=== PATIENT | male | born 1960 | race Two or more races ===

== ENCOUNTER 2022-02-11 17:44 | Inpatient (IN) | payer BC ==
[2022-02-11] VITALS (13 sets, daily range): BP systolic 101–145; BP diastolic 67–90
[~2022-02-11] VITALS: Ht 172.7 cm; Wt 76.6 kg
--- NOTE | 2022-02-11 19:30 | NUR ---
PATIENT ARRIVES TO ROOM FOR AMBLATION
--- NOTE | 2022-02-11 20:00 | NUR ---
Reassessment of patient completed. No distress noted.
[2022-02-11 20:01] LABS: HEMATOCRIT 25.1 % (39.0-50.0); HEMOGLOBIN 8.6 g/dl (14.0-18.0); IMMATURE GRANULOCYTES 0.2 % (0.0-5.0); MEAN CORPUSCULAR HGB 30.8 pG CALC (26.0-32.0); MEAN CORPUSCULAR HGB CONC 34.3 g/dL CAL (32.0-36.0); NEUT# 4.35 thou/uL (1.82-7.42); RED BLOOD COUNT 2.79 mill/uL (4.70-6.10); RED CELL DISTRI WIDTH 14.8 % (11.5-15.5)
[2022-02-11 20:18] LABS: ALBUMIN 4.4 g/dL (3.2-5.0); BILIRUBIN, TOTAL 0.4 mg/dL (0.0-1.4); TOTAL PROTEIN 7.1 g/dL (6.3-8.2)
[2022-02-11 20:25] LABS: CREATININE 11.2 mg/dL (0.7-1.3)
--- NOTE | 2022-02-11 21:00 | NUR ---
Reassessment of patient completed. No distress noted.
--- NOTE | 2022-02-11 22:00 | NUR ---
Reassessment of patient completed. No distress noted.
--- NOTE | 2022-02-11 22:10 | NUR ---
61 yr old marshallese male admitted to icu per stretcher from er. transferred self to bed. bed weight obtained. wheel lacer and truer shows sinus rhythm. #22 rac ns infusing @ 150cchr. po fluids given per request. denies n/v & diarrhea. history obtained per er record & pt. oriented to room. fall precautions initiated.
--- NOTE | 2022-02-11 22:12 | NUR ---
REPORT GIVEN TO KELLY CARTER AND KELLY HERNANDEZ TRASPORTED TO ICU
[2022-02-11 22:33] LABS: URINE BILIRUBIN - DIPSTICK NEGATIVE (NEGATIVE); URINE BLOOD DIPSTICK NEGATIVE (NEGATIVE); URINE COLOR YELLOW; URINE GLUCOSE - DIPSTICK NEGATIVE (NEGATIVE); URINE KETONE NEGATIVE (NEGATIVE); URINE LEUK ESTERASE NEGATIVE (NEGATIVE); URINE PROTEIN - DIPSTICK TRACE mg/dL (NEG-TRACE); URINE SPECIFIC GRAVITY >=1.030; URINE UROBILINOGEN - DIPSTICK 0.2 E.U./dL (0.2)
[2022-02-11 22:36] LABS: URINE NITRITE - DIPSTICK NEGATIVE (Negative)
[2022-02-11 22:37] LABS: CREATININE 10.4 mg/dL (0.7-1.3); POTASSIUM 5.8 mmol/l (3.5-5.1)
[2022-02-12] VITALS (25 sets, daily range): BP systolic 88–138; BP diastolic 62–91
--- NOTE | 2022-02-12 00:01 | NUR ---
eyes closed. no distress. engine monitor shows sinus rhythm.
--- NOTE | 2022-02-12 02:00 | NUR ---
reesting quietly. resps even & unlabored. no apparent distress.
--- NOTE | 2022-02-12 04:10 | NUR ---
lab here. blood drawn.
[2022-02-12 05:37] LABS: HEMATOCRIT 24.8 % (39.0-50.0); HEMOGLOBIN 8.3 g/dl (14.0-18.0); MEAN CELL VOLUME 92.5 fL CALC (80.0-100.0); MEAN CORPUSCULAR HGB CONC 33.5 g/dL CAL (32.0-36.0); RED BLOOD COUNT 2.68 mill/uL (4.70-6.10); RED CELL DISTRI WIDTH 15.2 % (11.5-15.5)
--- NOTE | 2022-02-12 06:04 | NUR ---
eyes closed. no distress. cardiac moitor shows sinus tach.
[2022-02-12 06:11] LABS: ALBUMIN 3.6 g/dL (3.2-5.0); MAGNESIUM 1.6 mg/dL (1.6-2.3)
[2022-02-12 06:27] LABS: CREATININE 10.8 mg/dL (0.7-1.3); POTASSIUM 6.1 mmol/l (3.5-5.1)
--- NOTE | 2022-02-12 08:30 | NUR ---
CLINICAL SCIENCE LIAISON LINE USED WITH DR ZAMORA TO EXPLAIN POC TO PT, INCLUDING POSSIBLE NEED FOR DIALYSIS AND TO GAIN CONSENT FOR TEMP DIALYSIS CATHETER IF NEEDED, PT VU, QUESTIONS ANSWERED, WILL ATTEMPT TO WAIT FOR PT TO URINATE AND RECHECK LABS AROUND NOON
[2022-02-12] MEDS ORDERED: METFORMIN500 M2 PO (09:48)
[2022-02-12] MEDS ORDERED: GLYBURIDE5 M1 PO (09:48)
[2022-02-12] MEDS ORDERED: ZOFRAN4 MG/TAB PO (09:49)
[2022-02-12 13:23] LABS: ALBUMIN 3.3 g/dL (3.2-5.0)
[2022-02-12 13:28] LABS: CREATININE 10.6 mg/dL (0.7-1.3); POTASSIUM 6.2 mmol/l (3.5-5.1)
--- NOTE | 2022-02-12 14:00 | NUR ---
PT HAS URINATED 300 ML AND BEEN UP TO [facility] FOR BM
--- NOTE | 2022-02-12 18:19 | NUR ---
pt now with temp dialysis cath to R neck, he has also been for US of kidneys, IVF continues
--- NOTE | 2022-02-12 19:30 | NUR ---
awakns easily. denies c/o. night monitor shows sinus tach. #22 rac d51/2ns w bicarb infusing 75cchr. po fluids taken well. has not voided. fall precautions cont.
--- NOTE | 2022-02-12 22:05 | NUR ---
dr izquierdo called this rfp writer. updated on pts condition. rt notified of need for o2. [facility] notified of need for meds to be verified.
--- NOTE | 2022-02-12 22:25 | NUR ---
lab here. blood drawn.
[2022-02-12 23:00] LABS: CREATININE 10.8 mg/dL (0.7-1.3); POTASSIUM 5.7 mmol/l (3.5-5.1)
[2022-02-13] VITALS (17 sets, daily range): BP systolic 108–125; BP diastolic 61–82
--- NOTE | 2022-02-13 00:01 | NUR ---
eyes closed. no distres. monitor tech shows sinus tach.
--- NOTE | 2022-02-13 02:00 | NUR ---
resting quietly. resps even & unlabored. no apparent distress.
--- NOTE | 2022-02-13 04:00 | NUR ---
resting quietly. resps even & unlabored.
--- NOTE | 2022-02-13 04:50 | NUR ---
lab here. blood drawn.
[2022-02-13 05:50] LABS: POTASSIUM 4.8 mmol/l (3.5-5.1)
[2022-02-13 05:57] LABS: CREATININE 10.7 mg/dL (0.7-1.3)
--- NOTE | 2022-02-13 13:02 | NUR ---
PT TO DIALYSIS, TRANSFERS TO WITH STEADY GAIT, DENIES PAIN AT THIS TIME
--- NOTE | 2022-02-13 13:38 | NUR ---
13:06 DIALYSIS TREATMENT INITIATED. DIALYSIS CATHATER TO LEFT IJ INTACT, SECURED WITH NEW DRESSING, VISABLE, AND CONNECTED TO BLOOD LINES. CATHATER VERY POSITIONAL. ALARMS FOR KINKS IN ARTERIAL LINES WHEN NO KINKS NOTED. PATIENT BLOOD PRESSURE WNL AT 129/77 HEART RATE 93 REGULAR, NO EDEMA NOTED, PULSES PRESENT, RESPIRATIONS EASY NON LABORED AT 21, SATS AT 96% RA. SKIN WARM DRY INTACT. PATIENT ALERT AND ORIENTE X 4. DENIES C/O OF PAIN OR DISCOMFORT AT PRESENT.CONSENTS SIGNED BY PATIENT. EDUCATED ON ESRD WITH PATIENT INDICATING UNDERSTANDING START WEIGHT 81.8 GK
--- NOTE | 2022-02-13 15:09 | NUR ---
PATIENT RESTING EYES CLOSED, DIALYSIS TREATMENT CONTINUES, PATIENT TOLERATING TREATMENT WITHOUT INCIDENT. NO EVIDENCE OF PAIN OR DISCOMFORT NOTED, NO SEIZURE ACTIVITY, DIALIZER CLEAN, NO EVIDENCE OF CLOTTING, CATHATER TO RIGHT IJ WORKING WELL AT PRESENT, NO ALARMS SOUNDING, REMOVING 1800 MLS FLUID. INSTRUCTED PATIENT ON USE OF EPOGEN, PATIENT VERBALIZED UNDERSTANDING.
--- NOTE | 2022-02-13 16:31 | NUR ---
PT NOT BACK FROM DIALYSIS, LINENS CHANGED
--- NOTE | 2022-02-13 16:49 | NUR ---
TREATMENT ENDED ABOUT 45 MINUTES EARLY DUE TO MACHINE MALFUNCTION, NO SEIZURE ACTIVITY NOTED BY PATIENT, BLOOD RETURNED, PATIENT TOLERATED DIALYSIS TREATMENT WITHOUT INCIDENT.V/S REMAINED WNL.
--- NOTE | 2022-02-13 17:12 | NUR ---
PT BACK FROM DIALYSIS, KALIE WELL, STOOD AT BEDSIDE TO USE URINAL, STEADY, DENIES PAIN/NEEDS
--- NOTE | 2022-02-13 17:24 | NUR ---
patient transported via w/c back to ICU ambulated to bed without difficulty. no c/o of dizziness, fatigue, seizures, loow b/p, no issues noted with dialysis treatment. patient taken off treatment about 45 minutes early due to machine malfunction. no effects to the patient
--- NOTE | 2022-02-13 20:00 | NUR ---
PT ALERT AND ORIENTED. NOT FLUIENT IN [place], BUT ANSWERS YES/NO QUESTIONS APPROPRIATELY WHEN ASKED. PT DENIENS PAIN AT THIS TIME. VITAL SIGNS ARE WITHIN NORMAL LIMITS. PTS CALL LIGHT AND PERSONAL BELONGINGS ARE WITHIN REACH. PT BEING CLOSELY MONITORED.
--- NOTE | 2022-02-13 22:00 | NUR ---
SHIFT REASSESSMENT - PT IN BED, WITH EYES CLOSED. PT SHOWS NO SIGNS OF DISTRESS. PT DENIES PAIN AT THIS TIME. CALL LIGHT AND PERSONAL BELONGINGS ARE WTIHIN REACH. PT BEING CLOSELY MONITORED.
[2022-02-14] VITALS (17 sets, daily range): BP systolic 95–123; BP diastolic 46–85
--- NOTE | 2022-02-14 | NUR ---
SHIFT REASSESSMENT - NO CHANGE IN PT STATUS SINCE INTIAL ASSESSMENT. CALL LIGHT AND PERSONAL BELONGS WITHIN REACH.
--- NOTE | 2022-02-14 02:00 | NUR ---
SHIFT REASSESSMENT - NO CHANGE IN PTS STATUS SINCE INITIAL ASSESSMENT. PT DENIES PAIN AT THIS TIME. WATER AND SNACK OFFERED. PT LOOKS TO BE RESTING COMFORTABLY. CALL LIGHT AND PERSONAL BELONGINGS WITHIN REACH.
--- NOTE | 2022-02-14 04:00 | NUR ---
SHIFT REASSESSMENT - NO CHANGE IN PTS STATUS SINCE INITIAL ASSESSMENT. CALL LIGHT AND PERSONAL BELONGINGS WITHIN REACH. PT BEING CLOSELY MONITORED.
--- NOTE | 2022-02-14 06:00 | NUR ---
SHIFT REASSESSMENT - NO CHANGE IN PTS STATUS SINCE INITIAL ASSESSMENT. PT BEING CLOSELY MONITORED. CALL LIGHT AND PERSONAL BELONGINGS WITHIN REACH.
[2022-02-14 06:38] LABS: ALBUMIN 2.8 g/dL (3.2-5.0); POTASSIUM 3.9 mmol/l (3.5-5.1)
[2022-02-14 06:49] LABS: CREATININE 8.3 mg/dL (0.7-1.3)
[2022-02-14 08:07] LABS: HEMATOCRIT 21.3 % (39.0-50.0); HEMOGLOBIN 7.1 g/dl (14.0-18.0); IMMATURE GRANULOCYTES 0.5 % (0.0-5.0); MEAN CELL VOLUME 92.6 fL CALC (80.0-100.0); MEAN CORPUSCULAR HGB 30.9 pG CALC (26.0-32.0); MEAN CORPUSCULAR HGB CONC 33.3 g/dL CAL (32.0-36.0); NEUT# 4.1 thou/uL (1.82-7.42); RED BLOOD COUNT 2.3 mill/uL (4.70-6.10); RED CELL DISTRI WIDTH 15.2 % (11.5-15.5)
--- NOTE | 2022-02-14 12:26 | NUR ---
DIALYSIS: PT RECEIVED IN BED, STABLE, ALERT, NO C/O'S, PT TRANSFERED TO HD UNIT ON WHEELCHAIR BY [employer]ER LUNGS CLEAR, NO EDEMA NOTED, CVC DRESSING C/I/D, PT WITH HGB 7.1, DR. MONSIVAIS ORDERED AN UNIT OF PRBC, PT EDUCATED ABOUT PROCEDURE, CONSENT SIGNED, TYPE & SCEEN DONE, TX SATRTED UNDER ASEPTIC TECHNIQUES, TARGET SET TO 1.5 LTS KALIE, WILL MONITOR HIS BP, VSS. BP-122/74 P-94 TEMP-98.5 R-16 SAT-98% DENIES ANY PAIN, REPORT RECEIVED BY HIS PRIMARY RN MACHINE #: [id number] PH- 7.2 COND. EXP.- 13.9 COND. ACT.- 14.0 [facility] LOT- [id number]
--- NOTE | 2022-02-14 15:20 | NUR ---
DIALYSIS: BLOOD RETURNED UNDER ASEPTIC TECHNIQUES, CVC CAPPED AND CLAMPPED, 2 LTS REMOVED W/O PROBLEMS, AP ALARM DURING TX. PT RETURNED TO ICU, PT STABLE, ALERT, NO C/O'S, VSS, BP 119/76 P-87 R-16 TEMP-98.3. REPORT GIVEN TO HIS PRIMARY NURSE MAURA MENDOZA RN. UNIT OF PRBC NOT READY.
--- NOTE | 2022-02-14 19:15 | NUR ---
PATIENT ARRIVED TO FLOOR VIA WHEELCHAIR ACCOMPANIED BY Itzel MENDOZA RN. REPORT RECEIVED FROM Itzel MENDOZA RN AT BEDSIDE.
--- NOTE | 2022-02-14 20:20 | NUR ---
PATIENT ASSEMENT COMPLETED A THIS TIME. PATIENT ALERT AND ORIENTED X3. DOES NOT SPEAK [place] ONLY ITALIAN, CAN UNDERSTAND SRI LANKAN. DRESSING TO RIGHT JUGULAR SECURED WITH TAPE. PATIENT DERNIES ANY CURRENT NEEDS. CALL LIGHT AND BEDSIDE TABLE WITHIH REACH.
--- NOTE | 2022-02-14 22:00 | NUR ---
MEDICATIONS ADMINISTER PER EMAR, SEE EMAR.
[2022-02-15] VITALS (9 sets, daily range): BP systolic 95–107; BP diastolic 59–68
--- NOTE | 2022-02-15 00:50 | NUR ---
LOW GRADE TEMPRATURE NOTED. REASSEMENT OF TEMP 98.9
--- NOTE | 2022-02-15 04:45 | NUR ---
PATIENT MEDICATED FOR CONTINUED LOW GRADE TEMP OF 100.4, PATIENT DENIES AY PAIN OR DISCOMOFROTT, CALL LIGHT AND BEDSIDE TBALE WTIHIN REACH.
[2022-02-15 05:50] LABS: HEMATOCRIT 21.5 % (39.0-50.0); HEMOGLOBIN 7.2 g/dl (14.0-18.0); IMMATURE GRANULOCYTES 0.8 % (0.0-5.0); MEAN CELL VOLUME 93.1 fL CALC (80.0-100.0); MEAN CORPUSCULAR HGB 31.2 pG CALC (26.0-32.0); MEAN CORPUSCULAR HGB CONC 33.5 g/dL CAL (32.0-36.0); NEUT# 4.38 thou/uL (1.82-7.42); RED BLOOD COUNT 2.31 mill/uL (4.70-6.10); RED CELL DISTRI WIDTH 14.9 % (11.5-15.5)
[2022-02-15 06:17] LABS: POTASSIUM 3.7 mmol/l (3.5-5.1)
[2022-02-15 06:37] LABS: CREATININE 5.7 mg/dL (0.7-1.3)
--- NOTE | 2022-02-15 07:00 | NUR ---
RECEIVE REPORT FROM ROSE MARIE MENDOZA.
--- NOTE | 2022-02-15 07:18 | NUR ---
AWRE OF CRITICAL LAB VALUES. CREATINE 5.7. BUN 43. BLOOD CULTURES ORDERED PER MD FOR ELEVATED TEMP
--- NOTE | 2022-02-15 08:00 | NUR ---
PATIENT ALERT AND ORIENTED X3. VITAL SIGNS STABLE AT THIS TIME. PT IS EDUCATED ABOUD MEDICATIONS AND NURSING PLAN FOR TODAY. PT REFER UNDERSTAND. SAFETY AND FALL PRECAUTIONS IN PLACE. CALL LIGHT IS WITHIN REACH.
[2022-02-15 09:24] LABS: URINE BILIRUBIN - DIPSTICK NEGATIVE (NEGATIVE); URINE BLOOD DIPSTICK TRACE-INTACT (NEGATIVE); URINE COLOR YELLOW; URINE GLUCOSE - DIPSTICK 500 mg/dL (NEGATIVE); URINE KETONE NEGATIVE (NEGATIVE); URINE LEUK ESTERASE NEGATIVE (NEGATIVE); URINE PH 5.5 (4.5-8.0); URINE PROTEIN - DIPSTICK TRACE mg/dL (NEG-TRACE); URINE UROBILINOGEN - DIPSTICK 0.2 E.U./dL (0.2)
[2022-02-15 09:25] LABS: URINE NITRITE - DIPSTICK NEGATIVE (Negative)
--- NOTE | 2022-02-15 10:53 | NUR ---
0923 DIALYSIS TREATMENT INITIATED. CLEANSED DIALYSIS CATHATER TO RIGHT IJ WITH APPROPRIATE CLEANSER, CHANGED DRSG, STARTED DIALYSIS, DIALYSIS CATHATER ISSUES NOTED, KINKING THAT WAS UNABLE TO BE RESOLVED. DIALYSIS TREATMENT ENDED AT 10:13. FLUID REMOVED 273.2 START WEIGHT 75.9 END WEIGHT 76.2 CATHATER TO BE CHANGED AND WILL ATTEMPT TO DIALYIZE LATER THIS DAY WITH NEW CATHATER.
--- NOTE | 2022-02-15 12:14 | NUR ---
PATIENT RESTING IN BED. STABLE AT THIS TIME.
--- NOTE | 2022-02-15 16:20 | NUR ---
PATIENT RESTING PLEASANT IN BED.
--- NOTE | 2022-02-15 19:45 | NUR ---
AWAKE ALERT AND ORIENTED X 4. PATIENT ABLE TO COMMUNICATE EFFECTIVELY IN SURINAMESE. DIAYSIS PORT INTACT AT RIGHT INTERNAL JUGULAR. RESPIRATIONS CLEAR UPPER LUNG MAYA FINE CRACKLES HEARD AT BIBASALAR LUNG MAYA. TEMPERATURE 99.0 VALVE LINER RUBBER SHOW SINUS RYTHM WITH OCCASSINAL PVC HR 93 BPM. NO ACUTE DISTRESS NOTED. PLEASANT AND COOPERATIVE
--- NOTE | 2022-02-15 21:48 | NUR ---
TEMPERATURE RECHECK 99.1. RESTING QUIETLY IN BED WITH RELAXED POSTURE DENIES PAIN OR DISCOMFORT. RESPIRATIONS EVEN AND UNLABORED.
[2022-02-16] VITALS (10 sets, daily range): BP systolic 94–109; BP diastolic 56–71
--- NOTE | 2022-02-16 00:03 | NUR ---
LYING IN BED RELAXED POSTURE NO ACUTE DISTRESS NOTED. RESPIRATIONS EVEN AND UNLABORED.
--- NOTE | 2022-02-16 02:49 | NUR ---
RESTING QUIETLY IN BED. RESPIRATIONS EVEN AND UNLABORED. NO ACUTE DISTRESS NOTED FANCY WIRE DRAWER SHOW SR WITH RARE PVC. WILL CONTINUE TO MONITOR.
--- NOTE | 2022-02-16 04:18 | NUR ---
PATIENT TEMPERATURE 98.6 SKIN WARM AND DRY. RESPIRATIONS EVEN AND UNLABORED. DENIES PAIN OR DISCOMFORT. VITAL SIGNS STABLE.
[2022-02-16 05:07] LABS: HEMATOCRIT 21.3 % (39.0-50.0); HEMOGLOBIN 7.1 g/dl (14.0-18.0); IMMATURE GRANULOCYTES 0.5 % (0.0-5.0); MEAN CELL VOLUME 94.2 fL CALC (80.0-100.0); MEAN CORPUSCULAR HGB 31.4 pG CALC (26.0-32.0); MEAN CORPUSCULAR HGB CONC 33.3 g/dL CAL (32.0-36.0); NEUT# 3.46 thou/uL (1.82-7.42); RED BLOOD COUNT 2.26 mill/uL (4.70-6.10); RED CELL DISTRI WIDTH 15.1 % (11.5-15.5)
[2022-02-16 05:35] LABS: CREATININE 7.1 mg/dL (0.7-1.3)
--- NOTE | 2022-02-16 08:00 | NUR ---
patient is a/ox3 able to speak in english as well, clear speech, denies pain at this time. clear top lungs, dminished crackles in bottome bases. active bowel sounds. soft non tender abdomen. vitals stable. strong pulses. no edema present at this time. safety measures in place. call light in reach. will continue to monitor per hospital's policy.
--- NOTE | 2022-02-16 10:00 | NUR ---
going to dialysis room with dialysis nurse .
--- NOTE | 2022-02-16 10:25 | NUR ---
DIALYSIS: PT RECEIVED IN BED STABLE, ALERT, NO C/O'S, LUNGS CLEAR, NO EDEMA NOTED, CVC DRESSING C/I/D, VSS, BP-108/68, P-98, R-20, TEMP-98.5. DENIES ANY PAIN. PT TRANFERED TO HD ROOM ON WHEELCHAIR, PT EDUCATED ABOUT PROCEDURE,VERBALIZED UNDERSTANDING. TX STARTED UNDER ASEPTIC TECHNIQUES, LINES REVERSED, TARGET SET TO 2 LTS KALIE, WILL MONITOR HIS BP. MACHINE: [id number] PH: 7.2 COND. EXP- 14.0 COND. ACT.- 14.1 [facility]- [id number]
--- NOTE | 2022-02-16 12:00 | NUR ---
PATIENT IS STILL IN DIALYSIS ,EATING LUNCH
--- NOTE | 2022-02-16 14:36 | NUR ---
DIALYSIS: BLOOD RETURNED UNDER ASEPTIC TECHNIQUES, CVC CAPPED AND CLAMPPED, 2 LTS REMOVED W/O PROBLEMS, VSS,BP-106/65, P- 86, R- 20, TEMP- 98.5, PT STABLE, ALERT, NO C/O'S, DENIES ANY PAIN PT RETURNED TO HIS ROOM ON WHEELCHAIR, REPORT GIVEN TO HIS PRIMARY NURSE MUSTAPHA COMBS
--- NOTE | 2022-02-16 20:45 | NUR ---
PATIENT IN BED WATCHING TV. NO S/S OF DISTRESS NOTED. DENIES PAIN. PATIENT SPEACK POSTUGUESS BUT UNDERSTAND [place] ISLANDER AND SOME M[place]ICAN. PATIENT RAC IV WAS OUT CATHETER IS INTACT. ASSESMENT COMPLETED. PATIENT HAS A 20G IV TO LAC SL PATENT AND FLUSHES WELL. CALL LIGHT IN REACH AND BED IN LOWEST POSITION. CONTINUE TO MONITOR.
[2022-02-17] VITALS: BP 100/66; BP 94/56
--- NOTE | 2022-02-17 | NUR ---
PATIENT IN BED RESTING WITH EYES CLOSED BREATHING EVEN AND UNLABOORED. NO S/S OF DISTRESS NOTED. CALL LIGHT IN REACH AND BED IN LOWEST POSITION. CONTINUE TO MONITOR.
[2022-02-17 04:00] VITALS: BP 102/56
[2022-02-17 04:17] VITALS: BP 102/56
--- NOTE | 2022-02-17 04:24 | NUR ---
PATIENT IN BED RESTING WITH EYES CLOSED BREATHING EVEN AND UNALBORED. NO S/S OF DISTRESSS NOTED. CALL LIGHT IN REACH AND BED IN LOWEST POSITION.
[2022-02-17 07:15] VITALS: BP 103/68
--- NOTE | 2022-02-17 08:00 | NUR ---
PT A&0X4. RESTING IN BED WITH NO COMPLAINTS OF PAIN. NO DISTRESS NOTED. FEBRILE WITH TEMP OF 100.6. MEDICATIONS ADMINISTERED PER MAR. . BED IN LOWEST LOCKED POSITION AND CALL LIGHT IN REACH. WILL CONTINUE TO MONITOR
[2022-02-17 08:05] LABS: HEMATOCRIT 25.2 % (39.0-50.0); HEMOGLOBIN 7.9 g/dl (14.0-18.0); MEAN CELL VOLUME 98.8 fL CALC (80.0-100.0); MEAN CORPUSCULAR HGB CONC 31.3 g/dL CAL (32.0-36.0); RED BLOOD COUNT 2.55 mill/uL (4.70-6.10); RED CELL DISTRI WIDTH 16.2 % (11.5-15.5)
[2022-02-17 08:16] LABS: POTASSIUM 4.4 mmol/l (3.5-5.1)
[2022-02-17 08:20] LABS: ALBUMIN 3.7 g/dL (3.2-5.0); CREATININE 5.1 mg/dL (0.7-1.3)
[2022-02-17 10:41] VITALS: BP 100/66
[2022-02-17] MEDS ORDERED: PHOSLO667 MG PO (11:02)
[2022-02-17] MEDS ORDERED: GLIPIZIDE5 M2 PO (11:02)
--- NOTE | 2022-02-17 12:31 | NUR ---
PT RESTING IN BED. BEDSIDE ROUNDING COMPLETED WITH DR HALE. PT TO BE DISCHARGED TODAY. PT VERBALIZED UNDERSTANDING. WILL CONTINUE TO MONITOR.
--- NOTE | 2022-02-17 16:12 | NUR ---
DR. MILIAN REMOVED DIALYSIS CATHETER FROM RIGHT SIDE OF PATIENTS NECK. PRESSURE HELD FOTR 15 MINUTES. DRESSING APPLIED. IV REMOVED FROM LAC. DISCHARGE INSTRUCTIONS AND PRESCRIPTIONS REVIEWED WITH PT. PT AND FAMILY MEMBERS VERBALIZED UNDERSTANDING. PT DISCHARGED TO HOME.
--- NOTE | 2022-02-17 17:26 | NUR ---
DIALYSIS CATHETER CULTURE NOT PERFORMED. HECTOR HALE informed.
== END 2022-02-17 16:20 | disposition home or self-care (01) | DRG 683 ==
LOC: ED 17:44 → ED-I 20:40 → ED 21:11 → ICU 21:12 → MS2 02-14 18:00
PROVIDERS: Internal Medicine Nephrology; Nurse Practitioner; ADMIT Internal Medicine; ATTEND Internal Medicine
PROC: 02HV33Z Insertion of Infusion Device into Superior Vena Cava, Percutaneous Approach (ICD-10-PCS; principal; 2022-02-13)
PROC: 5A1D70Z Performance of Urinary Filtration, Intermittent, Less than 6 Hours Per Day (ICD-10-PCS; 2022-02-13)
PROC: 5A1D70Z Performance of Urinary Filtration, Intermittent, Less than 6 Hours Per Day (ICD-10-PCS; 2022-02-14)
PROC: 5A1D70Z Performance of Urinary Filtration, Intermittent, Less than 6 Hours Per Day (ICD-10-PCS; 2022-02-15)
PROC: 5A1D70Z Performance of Urinary Filtration, Intermittent, Less than 6 Hours Per Day (ICD-10-PCS; 2022-02-16)
PROC: 02PYX3Z Removal of Infusion Device from Great Vessel, External Approach (ICD-10-PCS; 2022-02-17)
DX: N17.0 Acute kidney failure with tubular necrosis (principal); E87.2 Acidosis; I12.0 Hypertensive chronic kidney disease with stage 5 chronic kidney disease or end stage renal disease; E11.22 Type 2 diabetes mellitus with diabetic chronic kidney disease; E11.649 Type 2 diabetes mellitus with hypoglycemia without coma; N18.5 Chronic kidney disease, stage 5; E87.5 Hyperkalemia; E86.0 Dehydration; T38.3X5A Adverse effect of insulin and oral hypoglycemic [antidiabetic] drugs, initial encounter; E86.9 Volume depletion, unspecified; D63.1 Anemia in chronic kidney disease; N25.81 Secondary hyperparathyroidism of renal origin; R50.9 Fever, unspecified; Z79.84 Long term (current) use of oral hypoglycemic drugs; Z99.2 Dependence on renal dialysis; Z20.822 Contact with and (suspected) exposure to COVID-19
CPT/HCPCS: J1756; Q5106 EC